=== PATIENT | male | born 1975 | race Caucasian/White ===

== ENCOUNTER 2018-11-02 01:29 | Outpatient (CLI) | payer BC, SELFPAY ==
[2018-11-02 09:07] LABS: Anion Gap 9.3 mmol/L (3-11); BUN 20 mg/dL (7-18); CO2 25.7 mmol/L (21.0-32.0); CREATININE 1.24 mg/dL (0.70-1.30); Calcium 8.4 mg/dL (8.5-10.1); Calculated LDL 118 mg/dL; Chloride 105 mmol/L (98-107); Cholesterol 181 mg/dL (50-200); Glucose 96 mg/dL (70-100); HDL Cholesterol 38 mg/dL (40-60); Potassium 4.5 mmol/L (3.5-5.1); Sodium 140 mmol/L (136-145); Triglyceride 126 mg/dL (30-150)
== END 2018-11-02 01:49 ==
PROVIDERS: PCP Family Medicine; Visit Provider Family Medicine
DX: Z00.00 Encounter for general adult medical examination without abnormal findings (principal); Z13.228 Encounter for screening for other metabolic disorders; Z13.220 Encounter for screening for lipoid disorders
CPT/HCPCS: 36415; 80048; 80061; 83721

== ENCOUNTER 2020-01-30 20:17 | Outpatient (REF) | payer BC, SELFPAY ==
[2020-01-30 19:04] LABS: TSH (W/Ref FT4) 1.54 uIU/mL (0.36-3.74)
[2020-01-30 19:15] LABS: Hemoglobin A1C 4.9 % (<5.7)
== END 2020-01-30 20:37 ==
LOC: NCHCN 20:17
PROVIDERS: PCP Family Medicine; Visit Provider Family Medicine
DX: F41.9 Anxiety disorder, unspecified (principal); E66.3 Overweight; Z00.00 Encounter for general adult medical examination without abnormal findings
CPT/HCPCS: 83036; 84443

== ENCOUNTER → 2021-11-11 01:08 | Outpatient (CLI) | payer BC, SELFPAY ==
--- NOTE | 2021-11-11 08:00 | DI.RAD_ITS ---
Exam(s) XR SHOULDER RT COMPLETE 2+V EXAM: XR SHOULDER RT COMPLETE 2+V CLINICAL HISTORY: RT SHOULDER PAIN, M25.511. TECHNIQUE: 2D digital imaging was performed. COMPARISON: No exams were available for comparison FINDINGS: Five views: No evidence of fracture or dislocation of the glenohumeral joint. There are moderate degenerative ch anges in the AC joint. No AC joint distraction. Subacromial space exhibits normal height and no abn ormal soft tissue calcifications. Mild degenerative changes in the glenohumeral joint. IMPRESSION: As above. No fracture or dislocation DATA REPOSITORY: RADIATION DOSE DELIVERED:
== END ==
PROVIDERS: PCP Family Medicine; Visit Provider Family Medicine
DX: M19.011 Primary osteoarthritis, right shoulder (principal)
CPT/HCPCS: 73030

== ENCOUNTER 2021-12-09 17:39 | Outpatient (REF) | payer BC, SELFPAY ==
[2021-12-09 20:33] LABS: HGB 15.1 g/dL (13.5-17.5); MCH 30.9 pg (27.0-33.0); MCHC 36.8 % (32.0-36.0); MCV 84 fL (80-95); MPV 9.3 fL (8.0-11.0); Platelet Count 319 10^3/uL (130-400); RBC 4.88 10^6/uL (4.36-5.78); RDW-SD 36.1 fL; WBC 7.56 10^3/uL (4.4-10.8)
[2021-12-09 20:56] LABS: Anion Gap 9.5 mmol/L (3-11); BUN 26 mg/dL (7-18); CO2 26.5 mmol/L (21.0-32.0); Calcium 9.1 mg/dL (8.5-10.1); Chloride 102 mmol/L (98-107); Estimated GFR 94.59 (mL/min/1.73m2); Glucose 97 mg/dL (74-106); Potassium 4.2 mmol/L (3.5-5.1); Sodium 138 mmol/L (136-145); TSH (W/Ref FT4) 2.03 uIU/mL (0.36-3.74)
== END 2021-12-09 17:40 | disposition home or self-care (01) ==
LOC: NCHCN 17:39
PROVIDERS: PCP Family Medicine; Visit Provider Family Medicine
DX: I10 Essential (primary) hypertension (principal); F41.8 Other specified anxiety disorders
CPT/HCPCS: 80048; 85027; 84443

== ENCOUNTER 2022-09-29 02:59 | Outpatient (CLI) | payer BC, SELFPAY ==
[2022-09-29 09:18] LABS: ALT 23 U/L (16-63); AST 22 U/L (15-37); Albumin 4.1 g/dL (3.4-5.0); Alkaline Phosphatase 73 U/L (46-116); Anion Gap 7.9 mmol/L (3-11); BUN 20 mg/dL (7-18); Bilirubin, Total 0.4 mg/dL (0.2-1.0); CO2 27.1 mmol/L (21.0-32.0); CREATININE 1.2 mg/dL (0.70-1.30); Calcium 8.7 mg/dL (8.5-10.1); Chloride 104 mmol/L (98-107); Estimated GFR 75.53 (mL/min/1.73m2); Glucose 116 mg/dL (74-106); Potassium 4.5 mmol/L (3.5-5.1); Sodium 139 mmol/L (136-145); Total Protein 7.1 g/dL (6.4-8.2)
[2022-10-05 14:55] LABS: Renin Activity, Plasma 4.3 ng/mL/h
[2022-10-06 13:18] LABS: Metanephrine, Free 0.29 nmol/L (<0.50)
== END 2022-09-29 03:00 | disposition home or self-care (01) ==
LOC: LBO 02:59
PROVIDERS: PCP Family Medicine; Visit Provider Family Medicine
DX: I10 Essential (primary) hypertension (principal); R61 Generalized hyperhidrosis
CPT/HCPCS: 36415; 80053; 82088; 83835; 84244

== ENCOUNTER 2022-12-25 06:22 | Day surgery (SDC) | payer BC, SELFPAY ==
[2022-12-25 06:45] VITALS: BP 134/83; PULSE 58; RESP 16; TEMP 36.6; O2SAT 98
[2022-12-25] MEDS: Lactated Ringers 1,000 ML 80 ML IV (07:01)
--- NOTE | 2022-12-25 07:14 | W.ANESPRE ---
General Info Date of Service Date Performed: 12/25/22 Height: 6 ft 0.5 in Weight: 100.9 kg Body Mass Index (BMI): 29.7 Surgical Procedure: Operation Date: 12/25/22 07:35 Proposed Procedure Side Surgeon p Colonoscopy Paulino Ruiz MD Meds Allergies and Home Medications Allergies Allergy/AdvReac Type Severity Reaction Status Date / Time Sulfa (Sulfonamide Allergy Hives Unverified 12/25/22 06:44 Antibiotics) Home Medication Medication Instructions Recorded acyclovir 200 mg capsule 400 mg PO BID 03/05/21 sertraline 100 mg tablet 100 mg PO DAILY 03/05/21 candesartan 32 mg tablet 32 mg PO DAILY 11/20/22 hydrochlorothiazide 25 mg tablet 25 mg PO DAILY 11/20/22 metoprolol succinate 50 mg 50 mg PO DAILY 11/20/22 tablet,extended release 24 hr bisacodyl 5 mg tablet,delayed 5 mg PO ONCE colonscopy bowel prep 11/27/22 release (Dulcolax (bisacodyl)) #4 tabs polyethylene glycol 3350 17 238 g PO ONCE colonoscopy prep 11/27/22 gram/dose oral powder #238 grams Current Visit Medications: Current Medications Generic Name Dose Route Start Last Admin Trade Name Freq PRN Reason Stop Dose Admin Ringer's Solution 1,000 mls @ 80 mls/hr 12/25/22 06:00 12/25/22 07:01 IV 12/25/22 23:59 80 mls/hr INFUSION ROBINSON Administration IV Miscellaneous Supplies 1 each 12/25/22 06:00 Iv Access IV 12/25/22 23:59 DIRECTED ROBINSON Sodium Chloride 0 ml 12/25/22 06:00 Normal Saline Flush 10 Ml Syr IV 12/25/22 23:59 PRN PRN Sodium Chloride 0 ml 12/25/22 06:00 Normal Saline 10 Ml Vial IJ 12/25/22 23:59 DIRECTED PRN Sterile Water 0 ml 12/25/22 06:00 Water,Injection,Sterile 10 Ml Vial IJ 12/25/22 23:59 DIRECTED PRN PFSH Active Problems Active Problems: Problem Status Onset Code Olecranon bursitis of right elbow M70.21 Irritable bowel syndrome with diarrhea K58.0 Marijuana use F12.90 Heavy alcohol use Z78.9 Medical History Medical History Anxiety Genital warts H/O: HTN (hypertension) History of paresthesia Hx of herpes genitalis Overweight Pain, joint, shoulder, right Snoring Tobacco Smoking/Tobacco Use Status: Former Tobacco Use Alcohol Alcohol Intake: current Alcohol intake frequency: a few times a week Substance Use Substance use: Occasionally Substance use type: marijuana Vital Signs and Lab Results Vital Signs Most Recent Vital Signs in EMR: Most Recent Vital Signs Temp Pulse Resp BP Pulse Ox 36.6 C 58 L 16 134/83 98 12/25/22 06:45 12/25/22 06:45 12/25/22 06:45 12/25/22 06:45 12/25/22 06:45 Lab Results Blood Type / Crossmatch: No Data to Display Complete Blood Count: No Data to Display Complete Metabolic Panel: No Data to Display Liver Function Panel: No Data to Display Coagulation Panel: No Data to Display Cardiac Panel: No Data to Display Arterial Blood Gas: No Data to Display Venous Blood Gas: No Data to Display Pancreas Panel: No Data to Display Thyroid Panel: No Data to Display Infectious Disease: No Data to Display Blood Cultures: No Data to Display Toxicology Panel: No Data to Display Anesthesia Assessment and Plan Anesthesia History Personal History: No History of Anesthesia Complications Family History: No Family History of Anesthesia Complications Exercise Tolerance Exercise Tolerance: Metabolic Equivalents>4 Pertinent Negatives Pertinent Negatives: No Symptoms of GERD, No Major Cardiovascular Symptoms or Complaints, No Major Pulmonary Symptoms or Complaints and No History of CVA/TIA Cardiac & Pulmonary Exam Cardiac Exam: Normal S1/S2 Heart Sounds Pulmonary Exam: Clear Bilateral Breath Sounds Implantable Cardiac Device Does patient have a Pacemaker or an ICD?: No Airway Exam Known Difficult Airway: No Mallampati Class: 2 Mouth Opening: Normal (> 3cm) Thyromental Distance: Greater than 3 cm Neck Range of Motion: Full ROM Neck Circumference: Normal Teeth Condition: Normal Dentition ASA Classification ASA Score: ASA 2 Emergency Case?: No NPO Status NPO Status: NPO Clears >2 hours, Solids >8 hours Anesthesia Plan Resuscitation Status: Full Code Anesthesia Technique: General Anesthesia Airway Planned: Natural Airway Monitors Used: Standard Monitors
[2022-12-25 07:18] VITALS: BMI 29.7
--- NOTE | 2022-12-25 07:56 | BOWEL_PTH ---
PATIENT: Timothy Cortes LOC: [facility] U#:[id number] AGE/SX: 47/M ROOM: RE12/25/[address]: Paulino Ruiz : 1975 BED: DIS: 12/25/2022 SPEC #: [id number] RECD: 12/25/22 13:00 STATUS: RON Luigi #: [id number] SOFIE: 12/25/22 07:[address]: Paulino Ruiz DEPT: Surgical Specimen RECD BY: Mary Ann Delgado ENTERED: 12/25/22 13:02 SP TYPE: Bowel OTHR DR: Aylin Hickman Tissues: 1 - BIOPSY BOWEL 2 - BIOPSY BOWEL Procedures: GROSS AND MICRO LEVEL 4 Comments: [id number]
[2022-12-25 08:08] VITALS: BP 115/79; PULSE 74; RESP 18; TEMP 36.2; O2SAT 95
--- NOTE | 2022-12-25 08:08 | COLE_ITS ---
Date of service: 12/25/22 Time of Service: 08:11 Colonoscopy Report Procedure Description: Procedures performed: 1. Colonoscopy with cold forceps biopsy Preoperative diagnosis: Screening colonoscopy, chronic diarrhea Postoperative diagnosis: Normal terminal ileum, normal colon, normal rectum Surgeon: Tasneem Ruiz Anesthesia: Marli Indication for procedure: 47-year-old man has never had colon cancer screening before. There is no family history of colon cancer. He endorses some degree of chronic diarrhea and fecal urgency. Findings: No polyps. No inflammation. Normal terminal ileum.? Normal Colon.? Normal Rectum. Cold forceps biopsies were taken in the terminal ileum as well as randomly throughout the colon because of his chronic symptoms. Surveillance/follow-up recommendations: 10 years -pending normal biopsy results (presumed) Complications: None Blood loss: Minimal Prep: Excellent Specimens: Yes Procedure in detail: Written consent was obtained from the patient who was in agreement with the risks, benefits and indications of the procedure.? We went to the endoscopy suite and laid the patient in left lateral decubitus position.? Anesthesia was administered which was tolerated well.? A timeout was performed and when we are all in agreement we began the procedure. Digital rectal exam and visual examination was performed and within normal limits.? A well?lubricated colonoscope was advanced without difficulty all the way to the cecum identified by the ileocecal valve, and triangular folds and appendiceal orifice.? Terminal ileum was normal.? It was then slowly withdrawn.?? Retroflexion was performed in the rectum.? The findings/interven tions are noted above. The scope was then removed and the patient tolerated the procedure well and was then taken back to the PACU in hemodynamically stable condition.
--- NOTE | 2022-12-25 08:11 | W.PM.DSUDISC ---
Date of service: 12/25/22 Time of Service: 08:11 Discharge Plan Disposition Patient Disposition: Home Condition: Good Discharge Details Attending Provider: Paulino Ruiz Primary Care Provider: Aylin Hickman Home Meds and New Rx's Prescriptions: No Action polyethylene glycol 3350 17 gram/dose powder 238 g PO ONCE Qty: 238 0RF Rx Instructions: take per colonoscopy instructions bisacodyl [Dulcolax (bisacodyl)] 5 mg tablet,delayed release (DR/EC) 5 mg PO ONCE Qty: 4 0RF Rx Instructions: take per colonoscopy instructions acyclovir 200 mg capsule 400 mg PO BID sertraline 100 mg tablet 100 mg PO DAILY metoprolol succinate 50 mg tablet extended release 24 hr 50 mg PO DAILY candesartan 32 mg tablet 32 mg PO DAILY hydrochlorothiazide 25 mg tablet 25 mg PO DAILY Discharge Instructions Stand Alone Forms: Colonoscopy Post Instructions Activity:: Activity as Tolerated Diet:: As Tolerated Discharge Orders Discharge Orders: Discharge Order (Routine); Ordered 12/25/22 Ordered By: Paulino Ruiz DS: Diagnosis Discharge Diagnosis (1) Irritable bowel syndrome with diarrhea: Status: Acute Asessment and Plan: FINDINGS: No polyps or inflammation was found today. Your colon, small intestine and rectum all appeared completely normal visually. Multiple biopsies were taken routinely because of your chronic bowel habit issues. Those biopsies are presumably going to return as normal but will rule out a number of microscopic possible problems. You will get called with those results.
[2022-12-25 08:30] VITALS: BP 118/81; PULSE 56; RESP 18; TEMP 36.1; O2SAT 97
--- NOTE | 2022-12-25 08:54 | W.ANESPOSTOP ---
Postoperative Evaluation Date, Time and Location Date Performed: 12/25/22 Time Performed: 08:36 Patient Location: Day Surgery Unit Vital Signs Most Recent Imported Vital Signs: Most Recent Vital Signs Temp Pulse Resp BP Pulse Ox 36.1 C L 56 L 18 118/81 97 12/25/22 08:30 12/25/22 08:30 12/25/22 08:30 12/25/22 08:30 12/25/22 08:30 Pain Score Most Recent Pain Score: Most Recent Pain Score Pain Level 0 12/25/22 08:30 Assessment Mental Status: Awake (Alert & Oriented to Patient Baseline) Airway and Respiratory Function: Patent airway with normal (patient baseline) respiratory exam Cardiovascular Function: Hemodynamically Stable Hydration Status: Adequately Hydrated Nausea & Vomiting: No Nausea or Vomiting Pain: Pt. Denies Any Pain Peripheral Nerve Block: Patient did not receive a nerve block
== END 2022-12-25 09:01 | disposition home or self-care (01) ==
PROVIDERS: PCP Family Medicine; Visit Provider Student in an Organized Health Care Education/Training Program
PROC: 0DJD8ZZ Inspection of Lower Intestinal Tract, Via Natural or Artificial Opening Endoscopic (ICD-10-PCS; CPT 45378; principal; 2022-12-25 07:30)
DX: K58.0 Irritable bowel syndrome with diarrhea (principal)
CPT/HCPCS: 45380; 88305; J2001

== ENCOUNTER 2023-01-06 15:50 | Outpatient (CLI) | payer BC, SELFPAY ==
--- NOTE | 2023-01-06 15:04 | DI.RAD_ITS ---
Exam(s) XR ELBOW RT LIMITED EXAM: XR ELBOW RT LIMITED CLINICAL HISTORY: elbow swelling. TECHNIQUE: 2D digital imaging was performed of the left elbow. Two images were obtained. AP and la teral views were obtained. COMPARISON: No exams were available for comparison FINDINGS: BONES: No acute fracture is present. No bony destructive lesion is seen. JOINTS: The elbow is normally aligned. No joint effusion is seen. SOFT TISSUE: Normal. IMPRESSION: No acute abnormality. If there is concern for internal derangement, an MRI may be obtained for furth er evaluation. DATA REPOSITORY: RADIATION DOSE DELIVERED:
== END 2023-01-06 15:51 | disposition home or self-care (01) ==
LOC: DIORS 15:50
PROVIDERS: PCP Family Medicine; Visit Provider Physician Assistant
DX: M70.21 Olecranon bursitis, right elbow (principal)
CPT/HCPCS: 73070

== ENCOUNTER 2024-02-26 10:51 | Outpatient (REF) | payer BC, SELFPAY ==
[2024-02-26 14:46] LABS: ALT 28 U/L (16-63); AST 23 U/L (15-37); Albumin 4.2 g/dL (3.4-5.0); Alkaline Phosphatase 83 U/L (46-116); Anion Gap 9.9 mmol/L (3-11); BUN 18 mg/dL (7-18); Bilirubin, Total 0.47 mg/dL (0.2-1.0); CO2 26.1 mmol/L (21.0-32.0); CREATININE 1.2 mg/dL (0.70-1.30); Calcium 9.2 mg/dL (8.5-10.1); Calculated LDL 122 mg/dL (<100); Chloride 104 mmol/L (98-107); Cholesterol 219 mg/dL (<200); Estimated GFR 75.06 (mL/min/1.73m2); Glucose 113 mg/dL (74-106); HDL Cholesterol 44 mg/dL (40-60); Potassium 4.5 mmol/L (3.5-5.1); Sodium 140 mmol/L (136-145); TSH 1.33 uIU/mL (0.36-3.74); Total Protein 7.3 g/dL (6.4-8.2); Triglyceride 269 mg/dL (<150)
[2024-02-26 15:51] LABS: FREE T4 0.71 ng/dL (0.76-1.46)
== END 2024-02-26 10:52 | disposition home or self-care (01) ==
LOC: NCHCN 10:51
PROVIDERS: PCP Family Medicine; Visit Provider Family Medicine
DX: I10 Essential (primary) hypertension (principal); Z13.220 Encounter for screening for lipoid disorders; R63.5 Abnormal weight gain; Z13.1 Encounter for screening for diabetes mellitus
CPT/HCPCS: 80053; 80061; 83036; 84439; 84443

== ENCOUNTER 2024-11-04 00:51 | Outpatient (CLI) | payer BC, SELFPAY ==
--- NOTE | 2024-11-04 | DI.RAD_ITS ---
Exam(s) XR ELBOW RT COMPLETE EXAM: XR ELBOW RT COMPLETE CLINICAL HISTORY: L40.50 Psoriatic arthritis, lateral epicondylitis pain. TECHNIQUE: 2D digital imaging was performed. COMPARISON: CR XR ELBOW RT LIMITED from 01/06/2023 FINDINGS: 3 views No evidence fracture or joint effusion. There is no swelling of the olecranon bursa. Tiny calcific density on the posterior superior aspect of the olecranon fossa is unchanged from 202. Radial head and neck are intact. Epicondyles appear intact. However, on the frontal view there is a small calcific density noted in the central joint space. This measures approximately 1 mm. Possible loose intra- articular body. There are no osteochondral defects at the level the capitellum and trochlea. IMPRESSION: Findings as above but no significant radiographic change compared to images of December 2022. DATA REPOSITORY: RADIATION DOSE DELIVERED:
--- NOTE | 2024-11-04 | DI.RAD_ITS ---
Exam(s) XR HAND RT COMPLETE EXAM: XR HAND RT COMPLETE CLINICAL HISTORY: L40.50 Psoriatic arthritis, psoriasis,hand pain,primarily @ 3rd PIPs bilat. TECHNIQUE: 2D digital imaging was performed. COMPARISON: CR XR HAND LT COMPLETE from 11/04/2024 FINDINGS: 3 views No evidence of fracture or subluxations. No abnormal soft tissue calcifications. No erosions evident. No osteoarthritic degenerative changes. Bone density normal. There is no significant periarticular osteopenia. IMPRESSION: No significant radiograph findings in the right hand. DATA REPOSITORY: RADIATION DOSE DELIVERED:
--- NOTE | 2024-11-04 | DI.RAD_ITS ---
Exam(s) XR HAND LT COMPLETE EXAM: XR HAND LT COMPLETE CLINICAL HISTORY: L40.50 Psoriatic arthritis, psoriasis,hand pain,primarily @ 3rd PIPs bilat. TECHNIQUE: 2D digital imaging was performed. COMPARISON: No exams were available for comparison FINDINGS: 3 views No evidence acute fracture nor subluxations. Bone density normal. No periarticular osteopenia. No erosions. No osteoarthritic degenerative changes. Articulations appear unremarkable. No abnormal soft tissue calcifications. IMPRESSION: No significant radiographic findings in the left hand. DATA REPOSITORY: RADIATION DOSE DELIVERED:
--- NOTE | 2024-11-04 | DI.RAD_ITS ---
Exam(s) XR ELBOW LT COMPLETE EXAM: XR ELBOW LT COMPLETE CLINICAL HISTORY: L40.50 Psoriatic arthritis, lateral epicondylitis pain. TECHNIQUE: 2D digital imaging was performed. COMPARISON: CR XR ELBOW RT LIMITED from 01/06/2023 FINDINGS: 3 views No evidence of fracture or joint effusion there is no swelling of the olecranon bursa. Radial head and neck appear intact. Epicondyles unremarkable. Bone density normal. No osseous lesions. No loose intra-articular bodies. No obvious degenerative changes in the joint space. IMPRESSION: No significant radiograph findings in the left elbow. DATA REPOSITORY: RADIATION DOSE DELIVERED:
== END 2024-11-04 01:11 ==
PROVIDERS: PCP Family Medicine; Visit Provider Nurse Practitioner Acute Care
DX: L40.50 Arthropathic psoriasis, unspecified (principal); M25.521 Pain in right elbow
CPT/HCPCS: 73080; 73130

== ENCOUNTER 2024-11-04 01:13 | Outpatient (CLI) | payer BC, SELFPAY ==
[2024-11-04 12:38] LABS: C-Reactive Protein < 0.50 mg/dL (<or=0.5)
[2024-11-04 13:43] LABS: ESR < 1 mm/hr (0-15)
== END 2024-11-04 01:14 | disposition home or self-care (01) ==
LOC: LBO 01:13
PROVIDERS: PCP Family Medicine; Visit Provider Nurse Practitioner Acute Care
DX: L40.50 Arthropathic psoriasis, unspecified (principal)
CPT/HCPCS: 36415; 85652; 86200; 86812; 86140; 86431